=== PATIENT | female | born 1965 | race Caucasian/White ===

== ENCOUNTER 2017-05-28 21:26 | Emergency (ER) | payer OTHER ==
[~2017-05-28] VITALS: Ht 167.6 cm; Wt 95.3 kg
--- NOTE | 2017-05-28 21:24 | Emergency Room Report ---
History of Present Illness General Source: EMS Present Illness HPI Patient's 52-year-old female brought in by EMS after increased lethargy. The patient recently been medicated with her psychiatric medications. This included multiple sedative medications. Patient had been noted be conversant with EMS and patient ambulated to their gurney. The patient gradual onset of symptoms. Allergies: Coded Allergies: PENICILLINS (Verified Allergy, Unknown, 05/28/17) PROCAINE (Verified Allergy, Unknown, 05/28/17) Patient History Past Medical History: see triage record Reviewed Nursing Documentation: PMH: Agreed, PSxH: Agreed Review of Systems All Other Systems: limited - by poor cooperation Physical Exam Sp02 EP Interpretation: reviewed, normal General Appearance: normal inspection, well appearing, no apparent distress, alert, obese Head: atraumatic ENT: normal ENT inspection, hearing grossly normal, normal voice Neck: normal inspection, full range of motion, supple, no bony tend Respiratory: normal inspection, lungs clear, normal breath sounds, no respiratory distress, no retraction, no wheezing Cardiovascular #1: regular rate, rhythm, no edema Gastrointestinal: normal inspection, normal bowel sounds, non tender, soft, no guarding, no hernia Genitourinary: no CVA tenderness Musculoskeletal: normal inspection, back normal, normal range of motion Neurologic: normal inspection, alert, responsive, motor weakness, other Psychiatric: depressed affect Skin: normal inspection, normal color, no rash Medical Decision Making Diagnostic Impression: Primary Impression: Hyponatremia Additional Impression: Metabolic acidosis ER Course Patient presented for increased lethargy. Differential diagnoses include substance abuse, psychosis, bipolar disorder, depression, malingering. Because of complexity of patient's case laboratory testing was ordered.I laboratory testing was notable for hyponatremia. The patient was started on IV fluids. Dr. Aryan Doyle was contacted for contracted facility the patient will be transferred to [facility] Test 05/28/17 22:15 05/28/17 23:30 White Blood Count 6.3 K/UL (4.8-10.8) Red Blood Count 3.42 M/UL (4.20-5.40) Hemoglobin 12.1 G/DL (12.0-16.0) Hematocrit 34.3 % (37.0-47.0) Mean Corpuscular Volume 100 FL (80-99) Mean Corpuscular Hemoglobin 35.5 PG (27.0-31.0) Mean Corpuscular Hemoglobin Concent 35.4 G/DL (32.0-36.0) Red Cell Distribution Width 11.1 % (11.6-14.8) Platelet Count 146 K/UL (150-450) Mean Platelet Volume 8.6 FL (6.5-10.1) Neutrophils (%) (Auto) 48.7 % (45.0-75.0) Lymphocytes (%) (Auto) 32.4 % (20.0-45.0) Monocytes (%) (Auto) 15.6 % (1.0-10.0) Eosinophils (%) (Auto) 1.7 % (0.0-3.0) Basophils (%) (Auto) 1.6 % (0.0-2.0) Sodium Level 125 mEQ/L (135-145) Potassium Level 3.8 mEQ/L (3.4-4.9) Chloride Level 92 mEQ/L (98-107) Carbon Dioxide Level 17 mEQ/L (20-30) Anion Gap 16 (5-15) Blood Urea Nitrogen 13 mg/dL (7-23) Creatinine 0.8 mg/dL (0.5-0.9) Estimat Glomerular Filtration Rate > 60 mL/min (>60) Glucose Level 100 mg/dL (74-106) Calcium Level 9.1 mg/dL (8.6-10.2) Total Bilirubin 0.2 mg/dL (0.0-1.2) Aspartate Amino Transf (AST/SGOT) 17 U/L (5-40) Alanine Aminotransferase (ALT/SGPT) 9 U/L (3-33) Alkaline Phosphatase 52 U/L (35-104) Troponin I < 0.30 ng/mL (<=0.30) Total Protein 6.9 g/dL (6.6-8.7) Albumin 4.2 g/dL (3.5-5.2) Globulin 2.7 g/dL Albumin/Globulin Ratio 1.5 (1.0-2.7) Urine Color Pale yellow Urine Appearance Clear Urine pH 7 (4.5-8.0) Urine Specific [place] 1.010 (1.005-1.035) Urine Protein Negative (NEGATIVE) Urine Glucose (UA) Negative (NEGATIVE) Urine Ketones Negative (NEGATIVE) Urine Occult Blood 2+ (NEGATIVE) Urine Nitrite Negative (NEGATIVE) Urine Bilirubin Negative (NEGATIVE) Urine Urobilinogen Normal MG/DL (0.0-1.0) Urine Leukocyte Esterase Negative (NEGATIVE) Urine RBC 2-4 /HPF (0 - 2) Urine WBC 0-2 /HPF (0 - 2) Urine Squamous Epithelial Cells Occasional /LPF Urine Bacteria Occasional /HPF (NONE) Urine Random Sodium 76 mmol/L EKG Diagnostic Results Rate: normal - 80 Rhythm: NSR ST Segments: no acute changes Status: unchanged Disposition: XFER SHT-TRM HOSP Condition: Serious Haris Bell May 28, 2017 21:24
[2017-05-28] MEDS ORDERED: RISPERDAL2 MG ORAL (22:04)
[2017-05-28] MEDS ORDERED: TRAZODONE HCL150 MG ORAL (22:04)
[2017-05-28] MEDS ORDERED: CRESTOR20 MG ORAL (22:04)
[2017-05-28] MEDS ORDERED: GEMFIBROZIL600 MG ORAL (22:04)
[2017-05-28] MEDS ORDERED: SERTRALINE HCL50 MG ORAL (22:04)
[2017-05-28] MEDS ORDERED: DEPAKOTE ER500 MG ORAL (22:04)
[2017-05-28] MEDS ORDERED: TACTINAL500 M1 PO (22:04)
[2017-05-28] MEDS ORDERED: LATUDA120 MG PO (22:04)
[2017-05-28] MEDS ORDERED: IBUPROFEN600 MG ORAL (22:04)
[2017-05-28] MEDS ORDERED: TOPIRAMATE100 MG ORAL (22:04)
[2017-05-28] MEDS ORDERED: VENTOLIN HFA18 GM INH (22:04)
[2017-05-28] MEDS ORDERED: LORATADINE10 M3 PO (22:04)
[2017-05-28] MEDS ORDERED: OMEPRAZOLE40 M1 ORAL (22:04)
[2017-05-28] MEDS ORDERED: ABILIFY2 MG ORAL (22:04)
[2017-05-28] MEDS ORDERED: BENZTROPINE MESY1 MG PO (22:04)
[2017-05-28] MEDS ORDERED: LEVOTHYROXINE50 MCG ORAL (22:04)
[2017-05-28 22:37] LABS: BASOPHILS % (AUTO) 1.6 % (0.0-2.0); EOSINOPHILS % (AUTO) 1.7 % (0.0-3.0); LYMPHOCYTES % (AUTO) 32.4 % (20.0-45.0); MEAN CORPUSCULAR HEMOGLOBIN 35.5 PG (27.0-31.0); MEAN CORPUSCULAR HGB CONC 35.4 G/DL (32.0-36.0); MEAN CORPUSCULAR VOLUME 100 FL (80-99); MEAN PLATELET VOLUME 8.6 FL (6.5-10.1); MONOCYTES % (AUTO) 15.6 % (1.0-10.0); NEUTROPHILS % (AUTO) 48.7 % (45.0-75.0); PLATELET COUNT 146 K/UL (150-450); RED BLOOD COUNT 3.42 M/UL (4.20-5.40); RED CELL DISTRIBUTION WIDTH 11.1 % (11.6-14.8); WHITE BLOOD COUNT 6.3 K/UL (4.8-10.8)
[2017-05-28 22:47] LABS: TROPONIN I < 0.30 ng/mL (<=0.30)
[2017-05-28 22:50] LABS: ALANINE AMINOTRANSFERASE 9 U/L (3-33); ALBUMIN/GLOBULIN RATIO 1.5 (1.0-2.7); ANION GAP 16 (5-15); ASPARTATE AMINO TRANSFERASE 17 U/L (5-40); CALCIUM 9.1 mg/dL (8.6-10.2); CARBON DIOXIDE 17 mEQ/L (20-30); CHLORIDE 92 mEQ/L (98-107); CREATININE 0.8 mg/dL (0.5-0.9); GLOMERULAR FILTRATION RATE > 60 mL/min (>60); HEMOLYSIS 41; POTASSIUM 3.8 mEQ/L (3.4-4.9); SODIUM 125 mEQ/L (135-145); TOTAL PROTEIN 6.9 g/dL (6.6-8.7)
[2017-05-28 23:40] LABS: APPEARANCE,URINE CLEAR; KETONES,URINE NEGATIVE (NEGATIVE); LEUKOCYTE ESTERASE ,URINE NEGATIVE (NEGATIVE); NITRITE,URINE NEGATIVE (NEGATIVE); PH,URINE 7 (4.5-8.0); PROTEIN,URINE NEGATIVE (NEGATIVE); UROBILINOGEN,URINE NORMAL MG/DL (0.0-1.0)
[2017-05-29 00:07] LABS: BACTERIA,URINE OCCASIONAL /HPF; SQUAMOUS EPITHELIAL CELL,UR OCCASIONAL /LPF (NONE/OCC); WBC,URINE 0-2 /HPF (0 - 2)
[2017-05-29 00:22] VITALS: BP 143/86
[2017-05-29 02:01] VITALS: BP 115/79
[2017-05-29 02:39] VITALS: BP 115/79
--- NOTE | 2017-05-30 19:43 | Cardiology Report ---
APPROVED REPORT EKG Measurement Heart [id number] Normal sinus rhythm Normal ECG
== END 2017-05-29 02:41 | disposition short-term general hospital (02) ==
LOC: EDBD 21:26 → EMR 21:40 → EDBEDREQ 23:43 → EMR 05-29 02:41
DX: E87.1 Hypo-osmolality and hyponatremia (principal); E87.2 Acidosis; Z88.0 Allergy status to penicillin; Z88.8 Allergy status to other drugs, medicaments and biological substances; E66.9 Obesity, unspecified; Z68.33 Body mass index [BMI] 33.0-33.9, adult
CPT/HCPCS: 36415; 80053; 81001; 84300; 84484; 85025; 87081; 87086; 87181; 93005; 96361; 96374; 99284